=== PATIENT | female | born 1965 | race Caucasian/White ===

== ENCOUNTER 2021-02-19 20:28 | Observation (INO) ==
[2021-02-19] MEDS ORDERED: Ondansetron 4 MG/2 ML VIAL IVP PRN (23:03)
[2021-02-19] MEDS ORDERED: Acetaminophen 325 MG TABLET PO PRN (23:03)
[2021-02-19] MEDS ORDERED: *HR* LORazepam 2 MG/ML VIAL IVP PRN ×3 (23:09)
[2021-02-20] MEDS: Nicotine 21 MG PATCH.TD24 TD SCH ×2 (00:18→09:24)
[2021-02-20] MEDS: Thiamine (B-1) 100 MG TABLET PO SCH ×2 (00:20→09:24)
[2021-02-20] MEDS: Vitamin B Complex/Vit C/Vit E 1 EACH TABLET PO SCH ×2 (00:20→09:24)
[2021-02-20] MEDS: Folic Acid 1 MG TABLET PO SCH ×2 (00:20→09:24)
[2021-02-20 00:22] LABS: Hematocrit 43.7 % (35.3-44.9); Hemoglobin 14.7 g/dL (11.5-15.4); Mean Corpuscular HGB Conc 33.6 g/dL (31.6-35.5); Mean Platelet Volume 9.7 fL (9.4-12.4); Platelet Count 194 K/mcL (140-400); Red Blood Count 4.46 M/mcL (3.82-4.97); Red Cell Distribution Width 11.8 % (11.5-14.5); White Blood Count 5.9 K/mcL (4.3-11.1)
[2021-02-20 00:42] LABS: Chol/HDL Ratio 4.2 (0-4.9)
[2021-02-20 00:43] LABS: BUN/Creatinine Ratio 12 (6-26); Blood Urea Nitrogen 8 mg/dL (6-20); Calcium 9.4 mg/dL (8.6-10.3); Carbon Dioxide 26 mEq/L (23-29); Chloride 103 mEq/L (98-107); Glucose 81 mg/dL (70-105); Osmolality,Calculated 283 (280-300); Potassium 3.8 mEq/L (3.5-5.1); Sodium 138 mEq/L (136-145); eGFR For African Americans > 60 (> 60); eGFR For Non-African Americans > 60 (> 60)
[2021-02-20 00:44] LABS: Troponin I < 0.03 ng/mL (< 0.04)
[2021-02-20 03:45] LABS: Estimated Average Glucose 94 mg/dl; Hemoglobin A1C 4.9 %
[2021-02-20] MEDS ORDERED: *HR* Enoxaparin 40 MG/0.4 ML SYRINGE SQ SCH (06:00)
[2021-02-20] MEDS ORDERED: Regadenoson 0.4 MG/5 ML SYRINGE IVP ONE (06:07)
[2021-02-20] MEDS ORDERED: Aspirin 81 MG TAB.CHEW PO SCH (09:00)
[2021-02-20 11:39] VITALS: BP 126/81
== END 2021-02-20 16:00 | disposition home or self-care (01) ==
LOC: 3BNU → SUATTDRO 22:49
PROVIDERS: ADMIT Internal Medicine; ATTEND Registered Nurse